=== PATIENT | male | born 1945 | race Caucasian/White ===

== ENCOUNTER 2017-09-28 14:37 | Emergency (ER) | payer MEDICARE ==
[2017-09-28 15:23] VITALS: BP 156/67
[2017-09-28] MEDS ORDERED: Ibuprofen TAB* 600 MG PO ONE (15:29)
--- NOTE | 2017-09-28 15:39 | UC ---
Respiratory Complaint HPI - HPI Summary HPI Summary: Patient has had flu and sinus symptoms for the last 5 days. fever 103, SOB on exertion according to patient, all the time according to . - History of Current Complaint Chief Complaint: UCGeneralIllness Stated Complaint: COUGH, FEVER Hx Obtained From: Patient, Family/[employer] Onset/Duration: Sudden Onset, Lasting Days Timing: Constant Severity Initially: Mild Severity Currently: Severe Pain Intensity: 0 Character: Cough: Productive Aggravating Factors: Exertion, Deep Breaths, Recumbent Position Alleviating Factors: Nothing Associated Signs And Symptoms: Positive: Dyspnea, Fever, Chills, Wheezing, URI, Nasal Congestion, Sinus Discomfort - Allergies/Home Medications Allergies/Adverse Reactions: Allergies Allergy/AdvReac Type Severity Reaction Status Date / Time No Known Allergies Allergy Verified 09/28/17 15:23 Home Medications: Home Medications Aspirin [Aspirin 81 MG TAB] 09/28/17 [History] Atenolol TAB* [Tenormin TAB* 50 MG] 09/28/17 [History] Guaifenesin/Pseudo 600/60(NF) [Mucinex D 600/60 (NF)] 09/28/17 [History] Lisinopril [Prinivil TAB 20 mg] 09/28/17 [History] Multiple Vitamin [Multi Vitamin] 09/28/17 [History] Terazosin CAP* [Hytrin CAP 5 MG*] 10 09/28/17 [History] PMH/Surg Hx/FS Hx/Imm Hx Previously Healthy: Yes Cardiovascular History: Hypertension - Surgical History Surgical History: Yes Surgery Procedure, Year, and Place: [facility], T&A - Social History Alcohol Use: None Substance Use Type: None Smoking Status (MU): Former Smoker Review of Systems Constitutional: Fever, Chills, Fatigue Skin: Negative Eyes: Negative ENT: Sore Throat, Ear Ache, Nasal Discharge, Sinus Congestion, Sinus Pain/ Tenderness Respiratory: Shortness Of Breath, Cough Cardiovascular: Negative Gastrointestinal: Negative Genitourinary: Negative Motor: Negative Neurovascular: Negative Musculoskeletal: Arthralgia, Myalgia Neurological: Headache Psychological: Negative Is Patient Immunocompromised?: No All Other Systems Reviewed And Are Negative: Yes Physical Exam Triage Information Reviewed: Yes Appearance: Well-Nourished, Ill-Appearing, Pain Distress Vital Signs: Initial Vital Signs Temp 103.3 F 01/28/18 15:16 Pulse 60 09/28/17 15:16 Resp 20 09/28/17 15:16 BP 156/67 09/28/17 15:16 Pulse Ox 94 09/28/17 15:16 Vital Signs Reviewed: Yes Eye Exam: Normal ENT: Positive: Pharyngeal erythema, Nasal congestion, Nasal drainage, TM bulging , TM red, Sinus tenderness Dental Exam: Normal Neck exam: Normal Neck: Positive: Supple, Nontender, No Lymphadenopathy Respiratory Exam: Normal Respiratory: Positive: Respiratory distress, Decreased breath sounds, Crackles, Wheezing, Inspiration Cardiovascular Exam: Normal Cardiovascular: Positive: RRR, No Murmur, Pulses Normal Abdominal Exam: Normal Abdomen Description: Positive: Nontender, No Organomegaly, Soft Bowel Sounds: Positive: Present Musculoskeletal Exam: Normal Musculoskeletal: Positive: Strength Intact, ROM Intact, No Edema Neurological Exam: Normal Neurological: Positive: Alert, Muscle Tone Normal Psychological Exam: Normal Skin Exam: Normal UC Diagnostic Evaluation - Laboratory O2 Sat by Pulse Oximetry: 94 Respiratory Course/Dx - Course Course Of Treatment: hx obtained, exam performed ,meds reviewed, ibuprofen given , chest xray obtained. - Differential Dx/Diagnosis Differential Diagnosis/HQI/PQRI: Asthma, Bronchitis, CHF, Influenza, Laryngitis , Lower Resp Infection, Pulmonary Embolism, SARS Provider Diagnoses: influenza. sinusitis. fever Discharge - Discharge Plan Condition: Stable Disposition: HOME Prescriptions: DOXYcycline CAP(*) [DOXYcycline 100MG CAP(*)] 100 mg PO BID #14 cap Patient Education Materials: Sinusitis (ED) Referrals: Kyle Walton MD [Primary Care Provider] - Additional Instructions: 1. take the medication as prescribed. 2. Use the albuterol as needed every 4 hours 3. take the prednisone daily. 4. Follow up with any increased shortness of breath.
--- NOTE | 2017-09-28 16:17 | RAD ---
INDICATION: Short of breath. Cough. Flu. COMPARISON: None TECHNIQUE: PA and lateral dual-energy views were obtained. FINDINGS: Bones/Soft Tissues: There are no acute bony findings. Cardiomediastinal: The cardiomediastinal silhouette is normal. Lungs: There are no infiltrates. There is mild hyperinflation with presumed bile duct chronic interstitial change Pleura: There are no pleural effusions. Other: None IMPRESSION: HYPERINFLATION. NO ACTIVE DISEASE.
[2017-09-28] MEDS ORDERED: Albuterol/Ipratropium NEB.SOL* Albuterol 2.5 MG/Ipratropium 0.5 MG 3 ML INH ONE (16:40)
== END 2017-09-28 16:55 | disposition home or self-care (01) ==
LOC: UCCORT 14:37
DX: J11.1 Influenza due to unidentified influenza virus with other respiratory manifestations (principal); J32.9 Chronic sinusitis, unspecified; R50.9 Fever, unspecified; I10 Essential (primary) hypertension; Z79.82 Long term (current) use of aspirin; Z87.891 Personal history of nicotine dependence
CPT/HCPCS: 71046; 99202; A9270-GY; G0463